=== PATIENT | female | born 1995 | race Two or more races ===

== ENCOUNTER → 2018-11-07 | Outpatient (CLI) | payer SELFPAY ==
--- NOTE | 2018-11-07 14:37 | RADIOLOGY REPORT (SQ) ---
EXAM DESCRIPTION: U/S [id number] TRNABD 1GES W/ODOP COMPLETED DATE/TIME: 11/07/2018 2:06 pm REASON FOR STUDY: Z34.81 ENCOUNTER FOR SUPRVSN OF NORMAL , FIRST TRIMESTER Z34.81 ENCOUNTE R FOR SUPRVSN OF NORMAL , FIRST TRIM COMPARISON: None. TECHNIQUE: Transabdominal static and realtime grayscale images acquired of the pelvis. Additional se lected spectral and color Doppler images recorded. All images stored on PACs. CG: Not available. CLINICAL DATES: LMP 09/28/2018. 5 weeks 5 days. LIMITATIONS: None. FINDINGS: FETUS: Single Living intrauterine . ULTRASOUND EGA: 10 weeks 2 days ULTRASOUND CHIOMA: 06/03/2019 EFW: Not applicable less than 20 weeks. CRL: 3.4 cm. FHR: 169 beats per minute. SURVEY: Too early to assess. AMNIOTIC FLUID: Adequate amount. PLACENTA: Not yet developed due to early gestation. SUBCHORIONIC BLEED: Yes SIZE OF BLEED: 1.5 x 0.6 x 0.6 cm. UTERUS: No masses. No anomalies. CERVICAL LENGTH: 2.8 cm. Closed. RIGHT ADNEXA: Ovary not seen. No adnexal free fluid. No adnexal masses. LEFT ADNEXA: Normal ovary with normal vascular flow. 2.5 x 2.1 x 1.5 cm. No adnexal free fluid. No adnexal masses. FREE FLUID: None. OTHER: No other significant finding. IMPRESSION: LIVING INTRAUTERINE . EGA 10 weeks 2 days. Trimester of : First - 0 to 13 weeks. TECHNICAL DOCUMENTATION: JOB ID: [id number] [employer]- All Rights Reserved rev-10/18 Reading location - IP/workstation name: [email or web address]
== END ==
LOC: RAD 13:02
PROVIDERS: ATTEND Midwife
DX: Z34.81 Encounter for supervision of other normal pregnancy, first trimester (principal)
CPT/HCPCS: 76801

== ENCOUNTER → 2019-01-07 | Outpatient (CLI) | payer SELFPAY ==
--- NOTE | 2019-01-07 14:00 | RADIOLOGY REPORT (SQ) ---
EXAM DESCRIPTION: U/S OB 14+ TRNABD 1GES W/O DOP COMPLETED DATE/TIME: 01/07/2019 1:50 pm REASON FOR STUDY: Z34.82 ENCOUNTER FOR SUPRVSN OF NORMAL , SECOND TRIMESTER Z34.82 ENCOUNT ER FOR SUPRVSN OF NORMAL , SECOND TRI 19 weeks 0 days by dates COMPARISON: 11/07/2018 TECHNIQUE: Static and Dynamic grayscale imaging performed of gravid uterus using transabdominal appr oach. Additional selected color Doppler and spectral images recorded. All stored on PACS. LIMITATIONS: None. FINDINGS: FETUSES SEEN:1 EGA: 19 weeks 2 days Calculated using BPD,FL,HC,AC documented on images. No discrepancy with clinica l dates. CHIOMA: 06/01/2019 EFW: 277+/- 41 grams PERCENTILE: Not applicable. Fetus less than or equal to 20 weeks gestation. LVP: 5.1 cm PLACENTA: Anterior grade 1 PRESENTATION: Transverse with the head to the maternal right side. ANATOMY: HEART RATE: 139 beats per minute. FOUR CHAMBER HEART: Visualized. THREE VESSEL CORD: Yes. CORD INSERTION: Visualized. KIDNEYS AND BLADDER: Visualized. Appear normal. STOMACH: Visualized. Appears normal. SPINE: Normal as visualized. BRAIN AND LATERAL VENTRICLES: Visualized. Appear normal. OTHER: No other significant finding. MATERNAL ADNEXA: Maternal ovaries not visualized. CERVICAL LENGTH: 3 cm. Closed. OTHER: No other significant finding. IMPRESSION: LIVING INTRAUTERINE . ESTIMATED GESTATIONAL AGE 19 weeks 2 days. NO VISUALIZED ANOMALIES. Trimester of : Second trimester - 13 weeks 1 day to 27 weeks 6 days. TECHNICAL DOCUMENTATION: JOB ID: [id number] [employer]- All Rights Reserved Reading location - IP/workstation name: [email or web address]
== END ==
LOC: RAD 12:51
PROVIDERS: ATTEND Midwife
DX: Z34.82 Encounter for supervision of other normal pregnancy, second trimester (principal)
CPT/HCPCS: 76805

== ENCOUNTER 2019-05-31 04:28 | Inpatient (IN) | payer SELFPAY ==
[2019-05-31] MEDS ORDERED: RINGERS SOLUTION,LACTATED 1,000 ML IV PRN (04:58)
[2019-05-31] MEDS ORDERED: LIDOCAINE 1% INJ-PF (10 MG/ML) 30 ML SDV ONE (05:12)
[2019-05-31] MEDS ORDERED: MISOPROSTOL 0.2 MG TABLET ONE (05:12)
[2019-05-31] MEDS ORDERED: OXYTOCIN 10 UNIT/ML VIAL ONE (05:12)
[2019-05-31] MEDS ORDERED: OXYTOCIN/NORMAL SALINE 20 UNIT/1,000 ML RTUINJ ONE (05:12)
[2019-05-31] MEDS ORDERED: EPHEDRINE SULFATE INJ 50 MG/1 ML AMPULE ONE (05:16)
[2019-05-31] MEDS ORDERED: FENTANYL/BUPIVACAINE/NS/PF 300 MCG/150 ML RTUINJ EPI ONE (05:16)
[2019-05-31] MEDS ORDERED: BUPIVACAINE HCL 0.25 % INJ/PF (2.5 MG/1 ML) 30 ML VIAL ONE (05:16)
[2019-05-31 05:54] LABS: ABSOLUTE MONOCYTES (AUTO) 0.4 10^3/uL (0.1-1.4); ABSOLUTE NEUT (AUTO) 5.9 10^3/uL (1.7-8.2); BASOPHILS % (AUTO) 0.3 % (0-2); EOSINOPHILS % (AUTO) 0.2 % (0-6); HEMATOCRIT 35.7 % (36.0-47.0); HEMOGLOBIN 11.8 g/dL (12.0-15.5); LYMPHOCYTES % (AUTO) 23.8 % (13-45); MEAN CORPUSCULAR HEMOGLOBIN 25.8 pg (27.0-33.4); MEAN CORPUSCULAR HGB CONC 32.9 g/dL (32.0-36.0); MEAN CORPUSCULAR VOLUME 78 fl (80-97); MONOCYTES % (AUTO) 4.9 % (3-13); PLATELET COUNT 221 10^3/uL (150-450); RED BLOOD COUNT 4.55 10^6/uL (3.72-5.28); RED CELL DISTRIBUTION WIDTH 16.4 % (11.5-14.0); SEGMENTED NEUTROPHILS % (AUTO) 70.8 % (42-78); TOTAL CELLS COUNTED % (AUTO) 100 %; WHITE BLOOD COUNT 8.3 10^3/uL (4.0-10.5)
[2019-05-31 06:54] LABS: APPEARANCE,URINE SLIGHTLY-CLOUDY; BILIRUBIN,URINE NEGATIVE (NEGATIVE); COLOR,URINE YELLOW; GLUCOSE, URINE NEGATIVE (NEGATIVE); KETONES,URINE TRACE mg/dL (NEGATIVE); LEUKOCYTE ESTERASE,URINE NEGATIVE (NEGATIVE); NITRITE,URINE NEGATIVE (NEGATIVE); PROTEIN,URINE 100 mg/dL (NEGATIVE); URINE SPECIFIC GRAVITY 1.021; UROBILINOGEN,URINE NEGATIVE mg/dL (<2.0)
--- NOTE | 2019-05-31 07:05 | Admission Physical ---
Datetime Report Generated by CPN: 05/31/2019 07:04 CURRENT ADMISSION Chief Complaint: Uterine Contractions Indication for Induction: Not Applicable Admit Impression : Term, Intrauterine ; Active Labor; Intact Membranes Admit Plan: Admit to Unit; Initiate Labor Protocol ALLERGIES Medication Allergies: No Medication Allergies: No Known Allergies (05/31/2019) Latex: No Latex Allergies OBSTETRICAL HISTORY EDC: 06/04/2019 00:00 : 2 Para: 1 : 1 Livin Gestational Diabetes: No Rh Sensitization: No Incompetent Cervix: No JORGE: No Infertility: No ART Treatment: No Uterine Anomaly: No IUGR: No Hx Previous C/S: No Macrosomia: No Hx Loss/Stillborn: No PIH: No Hx : No Placenta Previa/Abruption: No Depression/PP Depression: No PTL/PROM: No Post Hemorrhage: No Current Procedures: Ultrasound Obstetrical History Comments: G1: 2016- PPROM, premature G2: current SEE RECORDS Alcohol: No Marijuana : No Cocaine: No Other Illicit Drugs: No Cigarettes: Never Smoker. 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: No Heart Disease: No Hosp/Surgery: Yes Autoimmune Disorder: No Anesthetic Complications: No Kidney Disease: No Abnormal Pap Smear: No Neuro/Epilepsy: No Psychiatric Disorders: No Other Medical Diseases: No Hepatitis/Liver Disease: No Significant Family History: No Varicosities/Phlebitis: No Trauma/Violence : No Thyroid Dysfunction: No Medical History Comments: chilbirth INFECTIOUS HISTORY Gonorrhea: No Genital Herpes: No Chlamydia: No Tuberculosis: No Syphilis: No Hepatitis: No HIV/AIDS Exposure: No Rash or Viral Illness: No HPV: No PHYSICAL EXAM General: Normal HEENT: Normal Neurologic: Normal Thyroid: Deferred Heart: Normal Lungs: Normal Breast: Deferred Back: Normal Abdomen: Normal Genitourinary Exam: Normal Extremities: Normal DTRs: Normal Pelvic Type: Adequate Vital Signs: Reviewed VAGINAL EXAM Dilatation: 4 Effacement: 90 Station: -1 Contraction Comments: q 2-3 MEMBRANES Membranes: Ruptured Amniotic Fluid Color: Clear FETUS A EGA: 39.3 Monitoring: External US FHR- Baseline: 145 Variability: Moderate 6-25bpm Accelerations: 15X15 FHR Category: Category I Presentation: Vertex Admit Comment: 24yo at 39+3ega. GBS negative. O positive. she presents in labor and SROM on admission. H/o PPROM and PTL at 36wks. Admit and anticipate PLANS FOR LABOR AND DELIVERY Labor and Delivery: None Pain Management: Epidural Feeding Preference: Formula Circumcision: N/A INFORMED CONSENT Informed Consent Obtained: Vaginal Delivery; Risks, Benefits and Alternatives Discussed Signature: with User ID: [email or web address]
[2019-05-31 07:09] LABS: URINE AMPHETAMINES SCREEN NEGATIVE; URINE BARBITURATES SCREEN NEGATIVE; URINE BENZODIAZEPINES SCREEN NEGATIVE; URINE COCAINE SCREEN NEGATIVE; URINE MARIJUANA (THC) SCREEN NEGATIVE; URINE METHADONE SCREEN NEGATIVE; URINE PHENCYCLIDINE SCREEN NEGATIVE
[2019-05-31] MEDS ORDERED: PROMETHAZINE HCL 25 MG SUPP.RECT PR PRN (09:36)
[2019-05-31] MEDS ORDERED: ZOLPIDEM TARTRATE 5 MG TABLET PO PRN (09:36)
[2019-05-31] MEDS ORDERED: ACETAMINOPHEN 650 MG SUPP.RECT PR PRN (09:36)
[2019-05-31] MEDS ORDERED: NA PHOS,M-B/NA PHOS,DI-BA (ADULT) 133 ML ENEMA PR PRN (09:36)
[2019-05-31] MEDS ORDERED: DIPHENHYDRAMINE HCL 25 MG CAPSULE PO PRN (09:36)
[2019-05-31] MEDS ORDERED: PSEUDOEPHEDRINE HCL 30 MG TABLET PO PRN (09:36)
[2019-05-31] MEDS ORDERED: MEASLES,MUMPS&RUBELLA VACC/PF 0.5 ML VIAL SUBCUT PRN (09:36)
[2019-05-31] MEDS ORDERED: GLYCERIN/WITCH HAZEL LEAF 1 EACH MED..WIPE TP PRN (09:36)
[2019-05-31] MEDS ORDERED: DIBUCAINE 1% OINTMENT 28 GM TP PRN (09:36)
[2019-05-31] MEDS ORDERED: MAGNESIUM HYDROXIDE SUSP 30 ML UDCUP PO PRN (09:36)
[2019-05-31] MEDS ORDERED: PROMETHAZINE HCL 25 MG TABLET PO PRN (09:36)
[2019-05-31] MEDS ORDERED: ACETAMINOPHEN WITH CODEINE #3 TABLET PO PRN ×2 (09:36)
[2019-05-31] MEDS ORDERED: BENZOCAINE/MENTHOL AEROSOL SPRAY 56 ML TOP PRN (09:36)
[2019-05-31] MEDS ORDERED: PROMETHAZINE HCL INJ 25 MG/1 ML VIAL IV PRN (09:36)
[2019-05-31] MEDS ORDERED: OXYTOCIN/NORMAL SALINE 20 UNIT/1,000 ML RTUINJ IV PRN (09:36)
[2019-05-31] MEDS ORDERED: DIPH/PERTUSS(ACELL)/TETANUS VAC/PF 0.5 ML SYR (>=10YO) IM PRN (09:36)
--- NOTE | 2019-05-31 10:49 | Delivery Summary ---
Del Sum A-C Datetime Report Generated by CPN: 05/31/2019 10:49 DELIVERY PERSONNEL DELIVERY PERSONNEL: [id number] Delivery Doctor:: Yari Barr MD Labor and Delivery Nurse:: Yaneli Kaur RNapplications packager Nurse:: Marlene Aguilar RN Systems Spec/FLIGHT ATTENDANT RAMP: Gemma iNcole, MUD JACK OPERATOR MATERNAL INFORMATION Delivery Anesthesia: Epidural Medications After Delivery: Pitocin Drip 20 Units/1000ml NSS Meds After Delivery Comment: pitocin 20 units in 1000mL nss Delivery QBL: 100 Maternal Complications: None Provider Comments: After delivery of the head, the hand was noted. The left, posterior arm delivered and then the rest of the body followed easily. Infant vigorous and cord clamping delayed 30 seconds during oral and nasal suctioning. Infant placed on Mother's chest. Cord double clamped and cut. Placenta spontaneously delivered. One centimeter right labial laceration repaired with 3-0 chromic for hemostasis. Fundus firm. EBL estimated at 100cc. Both and Mother stable to post parum. Apgars 8,9 at 1,5 minute repectfully. LABOR SUMMARY EDC: 06/04/2019 00:00 No. Babies in Womb: 1 Attempted: No Labor Anesthesia: Epidural LABOR INFORMATION Reason for Induction: Not Applicable Onset of Labor: 05/31/2019 04:53 Complete Dilatation: 05/31/2019 09:00 Oxytocin: N/A Group B Beta Strep: negative Antibiotics # of Doses: 0 Antibiotics Time of Last Dose: n/a Steroids Given: None Reason Steroids Not Administered: Not Applicable MEMBRANES Membranes Rupture Method: Spontaneous Rupture of Membranes: 05/31/2019 04:53 Length of Rupture (hr): 4.35 Amniotic Fluid Color: Clear Amniotic Fluid Amount: Small Amniotic Fluid Odor: Normal STAGES OF LABOR Stage 1 hr: 4 Stage 1 min: 7 Stage 2 hr: 0 Stage 2 min: 14 Stage 3 hr: 0 Stage 3 min: 5 Total Time in Labor hr: 4 Total Time in Labor min: 26 VAGINAL DELIVERY Episiotomy: None Laceration #1: None Other Laceration: R labial Laceration Repair: Yes Laceration Repair Note: 3-0 chromic stitch x2 for hemostasis Sponge Count Correct: Yes Sharps Count Correct: Yes CSECTION DELIVERY Primary Indication: N/A Secondary Indication: N/A CSection Incidence: N/A Labor: N/A Elective: N/A CSection Incision: N/A BABY A INFORMATION Infant Delivery Date/Time: 05/31/2019 09:14 Method of Delivery: Vaginal Born in Route : No : N/A Forceps: N/A Vacuum Extraction: N/A Shoulder Dystocia : No PRESENTATION/POSITION BABY A Presentation: Cephalic Cephalic Presentation: Vertex Vertex Position: Left Occipital Anterior Breech Presentation: N/A PLACENTA INFORMATION BABY A Placenta Delivery Time : 05/31/2019 09:19 Placenta Method of Delivery: Spontaneous Placenta Status: Delivered SCORES BABY A Heart Rate 1 min: >100 bpm Resp Effort 1 min: Good Cry Reflex Irritability 1 min: Cough or Sneeze or Pulls Away Muscle Tone 1 min: Active Motion Color 1 min: Blue/Pale Resuscitation Effort 1 min: Tactile Stimulation SCORE 1 MIN: 8 Heart Rate 5 min: >100 bpm Resp Effort 5 min: Good Cry Reflex Irritability 5 min: Cough or Sneeze or Pulls Away Muscle Tone 5 min: Active Motion Color 5 min: Body Chacra, Extremities Blue Resuscitation Effort 5 min: Tactile Stimulation SCORE 5 MIN: 9 INFANT INFORMATION BABY A Gestational Age at Delivery: 39.3 Gestational Status: Full Term- 39- 40.6 Weeks Infant Outcome : Liveborn Condition : Stable Infant Sex: Female IDENTIFICATION BABY A Infant Verification Date/Time: 05/31/2019 09:28 ID Band Number: [id number] Mother's Name Verified: Yes RN Verifying Infant: squinn Additional Verifying Personnel: B Baidy RN WEIGHT/LENGTH BABY A Birthweight (gm): 3057 Infant Weight (lb): 6 Infant Weight (oz): 12 Length (in): 19.50 Length (cm): 49.53 CORD INFORMATION BABY A No. 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
[2019-05-31] MEDS: IBUPROFEN 800 MG TABLET PO SCH ×3 (11:08→21:10)
[2019-05-31] MEDS: FERROUS SULFATE 325 MG TABLET PO SCH ×2 (11:09→17:55)
[2019-05-31] MEDS: DOCUSATE SODIUM 100 MG CAPSULE PO SCH ×2 (11:09→17:55)
[2019-05-31] MEDS: PRENATAL VITAMIN W DHA CAPSULE PO SCH (11:09)
[2019-05-31] MEDS: SENNOSIDES/DOCUSATE 8.6-50 MG 1 EACH TABLET PO SCH (11:09)
[2019-05-31] MEDS: FAMOTIDINE 20 MG TABLET PO SCH ×2 (11:09→21:11)
[2019-06-01] MEDS: IBUPROFEN 800 MG TABLET PO SCH ×3 (05:48→21:11)
[2019-06-01 07:30] LABS: HEMATOCRIT 31.1 % (36.0-47.0); HEMOGLOBIN 10.3 g/dL (12.0-15.5); MEAN CORPUSCULAR HEMOGLOBIN 26.2 pg (27.0-33.4); MEAN CORPUSCULAR HGB CONC 33.2 g/dL (32.0-36.0); MEAN CORPUSCULAR VOLUME 79 fl (80-97); PLATELET COUNT 164 10^3/uL (150-450); RED BLOOD COUNT 3.94 10^6/uL (3.72-5.28); RED CELL DISTRIBUTION WIDTH 16.4 % (11.5-14.0); WHITE BLOOD COUNT 9.7 10^3/uL (4.0-10.5)
--- NOTE | 2019-06-01 09:11 | PDOC PROGRESS REPORT ---
Subjective-OB Progress Note for:: 06/01/19 - PP Day #1, doing well, no complaints, O+. Rubella Immune, bottlefeeding Physical Exam (OB) Vital Signs: Temp Pulse Resp BP Pulse Ox 98.7 F 73 22 H 112/60 98 06/01/19 08:00 06/01/19 08:00 06/01/19 08:00 06/01/19 08:00 06/01/19 08:00 Intake & Output 05/31/19 06/01/19 06/02/19 06:59 06:59 06:59 Intake Total 1000 Balance 1000 Weight 71.7 kg - General General Appearance: Appears well, Alert In distress: None - PIH/Pre-Eclampsia DTR's: 2 + Clonus: Negative Headache: Absent Epigastric Pain: No Visual Changes: No - Dressing Removed: No - Bilateral Tubal Ligation Dressing Removed: No - Lochia Lochia Amount: Scant < 10 ml Lochia Color: Rubra/Red - Abdomen Description: Soft Hernia Present: No Fundal Description: Firm Fundal Height: u/u - u/2 - Respiratory Respiratory Status: No respiratory distress - Abdominal Inspection: Normal Distension: No distension Tenderness: Nontender - Genitourinary Genitourinary Note: voiding - Extremities Upper extremity: Normal inspection Lower extremities: Normal inspection - Neurological Cognition: Normal Orientation: AAOx4 - Psychological Associated symptoms: Normal affect, Normal mood - Skin Skin Temperature: Warm Skin Moisture: Dry Objective-Diagnostic Laboratory: 06/01/19 07:22 06/01/19 07:22 WBC 9.7 RBC 3.94 Hgb 10.3 L Hct 31.1 L MCV 79 L MCH 26.2 L MCHC 33.2 RDW 16.4 H Plt Count 164 Assessment and Plan(PN) - Assessment and Plan (1) delivery, delivered Is this a current diagnosis for this admission?: Yes (2) premature rupture of membranes, onset of labor within 24 hours of rupture, third trimester Is this a current diagnosis for this admission?: Yes (3) Acute blood loss anemia Is this a current diagnosis for this admission?: Yes Plan:: Routine PP orders, ambulation encouraged - Time Spent with Patient Time with patient: Less than 15 minutes Medications reviewed and adjusted accordingly: Yes - Disposition Anticipated Discharge: Home Within: within 24 hours
[2019-06-01] MEDS: DOCUSATE SODIUM 100 MG CAPSULE PO SCH ×2 (09:50→17:55)
[2019-06-01] MEDS: FERROUS SULFATE 325 MG TABLET PO SCH ×2 (09:50→17:55)
[2019-06-01] MEDS: FAMOTIDINE 20 MG TABLET PO SCH ×2 (09:51→21:11)
[2019-06-01] MEDS: PRENATAL VITAMIN W DHA CAPSULE PO SCH (09:51)
[2019-06-01] MEDS: SENNOSIDES/DOCUSATE 8.6-50 MG 1 EACH TABLET PO SCH (09:51)
[2019-06-02] MEDS: IBUPROFEN 800 MG TABLET PO SCH (05:32)
[2019-06-02] MEDS: SENNOSIDES/DOCUSATE 8.6-50 MG 1 EACH TABLET PO SCH (09:18)
[2019-06-02] MEDS: DOCUSATE SODIUM 100 MG CAPSULE PO SCH (09:18)
[2019-06-02] MEDS: PRENATAL VITAMIN W DHA CAPSULE PO SCH (09:18)
[2019-06-02] MEDS: FAMOTIDINE 20 MG TABLET PO SCH (09:18)
[2019-06-02] MEDS: FERROUS SULFATE 325 MG TABLET PO SCH (09:18)
--- NOTE | 2019-06-02 10:56 | PDOC DISCHARGE SUMMARY ---
Impression - Admit/DC Date/PCP Admission Date/Primary Care Provider: 05/31/19 05:01 VALENTINE MCLEOD CNM Discharge Date: 06/02/19 - Discharge Diagnosis (1) Active labor at term Is this a current diagnosis for this admission?: Yes (2) Spontaneous vaginal delivery Is this a current diagnosis for this admission?: Yes (3) Obstetrical laceration Is this a current diagnosis for this admission?: Yes - Additional Information Discharge Diet: Regular Discharge Activity: Balance Activity w/Rest, Pelvic Rest Referrals: VALENTINE MCLEOD CNM [Primary Care Provider] - Prescriptions: Ibuprofen [Motrin 800 mg Tablet] 800 mg PO Q8HP PRN #90 tablet PRN Reason: Home Medications: No122/Iron/Folic Acid [ Multi Tablet] 1 each PO DAILY #30 tablet 04/01/15 Ibuprofen [Motrin 800 mg Tablet] 800 mg PO Q8HP PRN #90 tablet 06/02/19 HPI Gestational Age: 39+3 Reason(s) for Admission: Onset of Labor Procedures: NST Intrapartum Procedure(s): Spontaneous Vaginal Delivery Complication(s): Laceration-Labial Results Laboratory Results: WBC 9.7 10^3/uL (4.0-10.5) 06/01/19 07:22 RBC 3.94 10^6/uL (3.72-5.28) 06/01/19 07:22 Hgb 10.3 g/dL (12.0-15.5) L 06/01/19 07:22 Hct 31.1 % (36.0-47.0) L 06/01/19 07:22 MCV 79 fl (80-97) L 06/01/19 07:22 MCH 26.2 pg (27.0-33.4) L 06/01/19 07:22 MCHC 33.2 g/dL (32.0-36.0) 06/01/19 07:22 RDW 16.4 % (11.5-14.0) H 06/01/19 07:22 Plt Count 164 10^3/uL (150-450) 06/01/19 07:22 Lymph % (Auto) 23.8 % (13-45) 05/31/19 05:38 [place] % (Auto) 4.9 % (3-13) 05/31/19 05:38 Eos % (Auto) 0.2 % (0-6) 05/31/19 05:38 Baso % (Auto) 0.3 % (0-2) 05/31/19 05:38 Absolute Neuts (auto) 5.9 10^3/uL (1.7-8.2) 05/31/19 05:38 Absolute Lymphs (auto) 2.0 10^3/uL (0.5-4.7) 05/31/19 05:38 Absolute Monos (auto) 0.4 10^3/uL (0.1-1.4) 05/31/19 05:38 Absolute Eos (auto) 0.0 10^3/uL (0.0-0.6) 05/31/19 05:38 Absolute Basos (auto) 0.0 10^3/uL (0.0-0.2) 05/31/19 05:38 Seg Neutrophils % 70.8 % (42-78) 05/31/19 05:38 Urine Color YELLOW 05/31/19 06:15 Urine Appearance SLIGHTLY-CLOUDY 05/31/19 06:15 Urine pH 5.0 (5.0-9.0) 05/31/19 06:15 Ur Specific [place] 1.021 05/31/19 06:15 Urine Protein 100 mg/dL (NEGATIVE) H 05/31/19 06:15 Urine Glucose (UA) NEGATIVE mg/dL (NEGATIVE) 05/31/19 06:15 Urine Ketones TRACE mg/dL (NEGATIVE) H 05/31/19 06:15 Urine Blood SMALL (NEGATIVE) H 05/31/19 06:15 Urine Nitrite NEGATIVE (NEGATIVE) 05/31/19 06:15 Urine Bilirubin NEGATIVE (NEGATIVE) 05/31/19 06:15 Urine Urobilinogen NEGATIVE mg/dL (<2.0) 05/31/19 06:15 Ur Leukocyte Esterase NEGATIVE (NEGATIVE) 05/31/19 06:15 Urine Ascorbic Acid NEGATIVE (NEGATIVE) 05/31/19 06:15 Urine Opiates Screen NEGATIVE 05/31/19 06:15 Urine Methadone Screen NEGATIVE 05/31/19 06:15 Ur Barbiturates Screen NEGATIVE 05/31/19 06:15 Ur Phencyclidine Scrn NEGATIVE 05/31/19 06:15 Ur Amphetamines Screen NEGATIVE 05/31/19 06:15 U Benzodiazepines Scrn NEGATIVE 05/31/19 06:15 Urine Cocaine Screen NEGATIVE 05/31/19 06:15 U Marijuana (THC) Screen NEGATIVE 05/31/19 06:15 RPR NONREACTIVE (NONREACTIVE) 05/31/19 05:38 Blood Type O POSITIVE 05/31/19 05:38 Antibody Screen NEGATIVE 05/31/19 05:38 Plan Plan of Treatment: return to [facility] at 4 weeks for post exam
[2019-06-02 11:38] VITALS: BP 112/60
== END 2019-06-02 12:45 | disposition home or self-care (01) | DRG 807 ==
LOC: LC 04:28 → LR 05:01 → 2S 11:28
PROVIDERS: ADMIT Obstetrics & Gynecology; ATTEND Obstetrics & Gynecology
PROC: 10E0XZZ Delivery of Products of Conception, External Approach (ICD-10-PCS; principal; 2019-05-31)
PROC: 0HQ9XZZ Repair Perineum Skin, External Approach (ICD-10-PCS; 2019-05-31)
DX: O32.6XX0 Maternal care for compound presentation, not applicable or unspecified (principal); Z37.0 Single live birth; O70.0 First degree perineal laceration during delivery; Z3A.39 39 weeks gestation of pregnancy
CPT/HCPCS: 36415; 80307; 81005; 85025; 85027; 86592; 86850; 86900; 86901; 94760; J2590; J3010; J3490